=== PATIENT | male | born 1945 | race Caucasian/White ===

== ENCOUNTER 2021-05-09 18:27 | Inpatient (IN) | payer BC, MEDICARE ==
[2021-05-09 19:36] LABS: #Basophils 0.1 10x3/uL (0.0-0.2); #Monocytes 1.1 10x3/uL (0.0-1.1); #Neutrophils 14.3 10x3/uL (1.5-8.4); %Basophils 0.5 % (0.0-2.0); %Eosinophils 0.2 % (0.0-6.0); %Lymphocytes 3.8 % (18.0-47.0); %Monocytes 6.8 % (0.0-10.0); %Neutrophils 88.3 % (40.0-75.0); Hemoglobin 12.9 g/dL (13.5-17.5); Mean Corpuscular HGB CONC 33.4 g/dL (32.0-36.0); Mean Corpuscular Hemoglobin 32.3 pg (27.0-33.0); Mean Corpuscular Volume 96.5 fl (81.2-95.1); Mean Platelet Volume 9.1 fl (7.4-10.4); Platelet Count 230 10x3/uL (150-450); RBC Distribution Width 12.7 % (11.5-14.5); White Blood Cell (WBC) Count 16.2 10x3/uL (3.5-10.5)
[2021-05-09 19:54] LABS: ALT (SGPT) 13 U/L (8-55); AST (SGOT) 20 U/L (5-34); Albumin 3.8 g/dL (3.4-4.8); Alkaline Phosphatase 78 U/L (40-110); Anion Gap 13 mmol/L (10-20); BUN (Urea Nitrogen) 9 mg/dL (8.4-25.7); Bilirubin, Total 0.8 mg/dL (0.2-1.2); Calc. Creatinine Clearance 0 mL/min (70-130); Calcium 9.2 mg/dL (7.8-10.44); Carbon Dioxide 30 mmol/L (23-31); Chloride 87 mmol/L (98-107); Globulin 3.4 g/dL (2.4-3.5); Glucose 130 mg/dL (83-110); Magnesium 1.5 mg/dL (1.6-2.6); Potassium 3.9 mmol/L (3.5-5.1); Protein, Total 7.2 g/dL (5.8-8.1); Sodium 126 mmol/L (136-145)
[2021-05-09 20:07] LABS: Bilirubin 1+ (Negative); Blood, Urine 150 (Negative); Clarity Slightly Cloudy (Clear); Glucose, Urine (Dipstick) Normal (Negative); Ketone, Urine 5 mg/dL (Negative); Leukocyte 500 (Negative); Nitrite Negative (Negative); Protein, Urine (Dipstick) 100 mg/dl (Neg-Trace)
[2021-05-09 20:20] LABS: Bacteria/HPF 3+ HPF (None Seen); Mucous/LPF 2+ LPF (<2+); Renal Epithelial 0-3 HPF (None Seen); Squamous Epithelial 0-3 HPF (0-3); Transitional Epithelial 0-3 HPF (None Seen); WBC/HPF Greater than 50 HPF (0-3)
[2021-05-09 20:21] LABS: White Blood Cell Cast 0-3 LPF (None Seen)
[2021-05-09] MEDS ORDERED: Cefepime 2 GM VIAL ONE (22:08)
[2021-05-09] MEDS ORDERED: Magnesium 2 GM/50 ML BAG (IN WATER) ONE (22:09)
[2021-05-10 00:33] LABS: CKMB 1.8 ng/mL (0-6.6)
[2021-05-10] MEDS ORDERED: Acetaminophen 325 MG TAB PO PRN (05:12)
[2021-05-10] MEDS ORDERED: HYDROcodone/Acetaminophen 5/325 mg Tablet PO PRN (05:12)
[2021-05-10] MEDS ORDERED: Senokot S 8.6-50 MG TAB PO PRN (05:12)
[2021-05-10] MEDS ORDERED: Cefepime 2 GM VIAL ONE (05:41)
[2021-05-10] MEDS ORDERED: NS 0.9% w/ 20 MEQ KCL 1,000 ML ONE (05:45)
[2021-05-10] MEDS ORDERED: Levothyroxine 150 MCG TAB PO SCH (06:00)
[2021-05-10 06:32] LABS: #Basophils 0.1 10x3/uL (0.0-0.2); #Eosinphils 0.1 10x3/uL (0.0-0.5); #Monocytes 1.1 10x3/uL (0.0-1.1); %Basophils 0.4 % (0.0-2.0); %Eosinophils 0.6 % (0.0-6.0); %Lymphocytes 4.7 % (18.0-47.0); %Monocytes 7.1 % (0.0-10.0); %Neutrophils 86.5 % (40.0-75.0); Hemoglobin 12.5 g/dL (13.5-17.5); Mean Corpuscular Hemoglobin 32.5 pg (27.0-33.0); Mean Corpuscular Volume 95.6 fl (81.2-95.1); Mean Platelet Volume 9.2 fl (7.4-10.4); Platelet Count 226 10x3/uL (150-450); RBC Distribution Width 13.1 % (11.5-14.5); Red Blood Cell (RBC) Count 3.85 10x6/uL (4.32-5.72)
[2021-05-10 06:37] LABS: Anion Gap 13 mmol/L (10-20); BUN (Urea Nitrogen) 9 mg/dL (8.4-25.7); Calc. Creatinine Clearance 0 mL/min (70-130); Calcium 8.8 mg/dL (7.8-10.44); Carbon Dioxide 26 mmol/L (23-31); Chloride 90 mmol/L (98-107); Glucose 146 mg/dL (83-110); Magnesium 1.9 mg/dL (1.6-2.6); Potassium 3.8 mmol/L (3.5-5.1); Sodium 125 mmol/L (136-145)
[2021-05-10 06:44] LABS: Troponin I 0.068 ng/mL (< 0.028)
[2021-05-10] MEDS ORDERED: Albuterol Sulfate 2.5 mg/3 ml Neb EZPAP PRN (07:00)
[2021-05-10] MEDS ORDERED: Multivitamin W/ Minerals 1 TAB PO SCH (09:00)
[2021-05-10] MEDS ORDERED: Aspirin 81 mg Enteric Coated Tablet PO SCH (09:00)
[2021-05-10] MEDS: NS 0.9% w/ 20 MEQ KCL 1,000 ML/1,000 ML BAG IV SCH ×3 (09:21→23:44)
[2021-05-10] MEDS: Cefepime 2 GM in Sodium Chloride 0.9% 100 ML IVPB SCH ×2 (09:24→16:59)
[2021-05-10 09:38] LABS: Troponin I 0.064 ng/mL (< 0.028)
[2021-05-10] MEDS: Mometasone 100 MCG/Formoterol 5 MCG 120 PUFF INHALER INH SCH ×2 (09:41→17:17)
[2021-05-10] MEDS: Enoxaparin Sodium 40 MG/0.4 ML SYRINGE SC SCH (09:42)
[2021-05-10 09:59] VITALS: BMI 27.1
[2021-05-10] MEDS ORDERED: FLU VACC QS2021-22(65YR UP)/PF 240 MCG/0.7 ML SYRINGE IM ONE (10:30)
[2021-05-10 12:18] LABS: Sodium 128 mmol/L (136-145)
[2021-05-10] MEDS: Multivitamin W/ Minerals 1 TAB PO SCH (13:23)
[2021-05-10 18:10] LABS: SARS-CoV-2 PCR by NAA Not Detected (NotDetected)
[2021-05-10 18:34] LABS: Sodium 127 mmol/L (136-145)
[2021-05-10 22:39] LABS: Sodium 126 mmol/L (136-145)
[2021-05-11] MEDS ORDERED: Levothyroxine Sodium 100 MCG TAB ONE (05:18)
[2021-05-11 06:03] LABS: Sodium 128 mmol/L (136-145)
[2021-05-11] MEDS: Cefepime 2 GM in Sodium Chloride 0.9% 100 ML IVPB SCH ×2 (06:04→17:39)
[2021-05-11] MEDS: Levothyroxine Sodium 100 MCG TAB PO SCH ×2 (06:04→06:50)
[2021-05-11] MEDS: Aspirin Chewable 81 MG TAB PO SCH (08:16)
[2021-05-11] MEDS: NS 0.9% w/ 20 MEQ KCL 1,000 ML/1,000 ML BAG IV SCH (08:16)
[2021-05-11] MEDS ORDERED: Levothyroxine 150 MCG TAB PO SCH (09:00)
[2021-05-11] MEDS: Enoxaparin Sodium 40 MG/0.4 ML SYRINGE SC SCH (11:05)
[2021-05-11] MEDS: Mometasone 100 MCG/Formoterol 5 MCG 120 PUFF INHALER INH SCH ×2 (11:05→17:39)
[2021-05-11] MEDS: Multivitamin W/ Minerals 1 TAB PO SCH (11:32)
[2021-05-11 11:50] LABS: Sodium 126 mmol/L (136-145)
[2021-05-11 17:29] LABS: Sodium 129 mmol/L (136-145)
[2021-05-12 04:54] LABS: Anion Gap 11 mmol/L (10-20); BUN (Urea Nitrogen) 8 mg/dL (8.4-25.7); Calc. Creatinine Clearance 123 mL/min (70-130); Calcium 8.3 mg/dL (7.8-10.44); Carbon Dioxide 28 mmol/L (23-31); Chloride 95 mmol/L (98-107); Glucose 117 mg/dL (83-110); Potassium 3.7 mmol/L (3.5-5.1); Sodium 130 mmol/L (136-145)
[2021-05-12 05:37] LABS: #Basophils 0.1 10x3/uL (0.0-0.2); #Eosinphils 0.5 10x3/uL (0.0-0.5); #Monocytes 0.8 10x3/uL (0.0-1.1); #Neutrophils 4.2 10x3/uL (1.5-8.4); %Basophils 0.7 % (0.0-2.0); %Eosinophils 6.8 % (0.0-6.0); %Lymphocytes 17.6 % (18.0-47.0); %Monocytes 12.2 % (0.0-10.0); %Neutrophils 62.1 % (40.0-75.0); Hemoglobin 11.1 g/dL (13.5-17.5); Mean Corpuscular HGB CONC 32.5 g/dL (32.0-36.0); Mean Corpuscular Hemoglobin 32.3 pg (27.0-33.0); Mean Corpuscular Volume 99.4 fl (81.2-95.1); Mean Platelet Volume 9.8 fl (7.4-10.4); Platelet Count 231 10x3/uL (150-450); RBC Distribution Width 13.1 % (11.5-14.5); Red Blood Cell (RBC) Count 3.44 10x6/uL (4.32-5.72); White Blood Cell (WBC) Count 6.7 10x3/uL (3.5-10.5)
[2021-05-12] MEDS: Levothyroxine Sodium 100 MCG TAB PO SCH (06:04)
[2021-05-12] MEDS: Cefepime 2 GM in Sodium Chloride 0.9% 100 ML IVPB SCH (06:04)
[2021-05-12] MEDS: Mometasone 100 MCG/Formoterol 5 MCG 120 PUFF INHALER INH SCH (07:20)
[2021-05-12 07:57] VITALS: TEMP 97.1
[2021-05-12] MEDS: Enoxaparin Sodium 40 MG/0.4 ML SYRINGE SC SCH (08:27)
[2021-05-12] MEDS: Aspirin Chewable 81 MG TAB PO SCH (08:28)
[2021-05-12 11:54] VITALS: BP 142/79
[2021-05-12] MEDS: Multivitamin W/ Minerals 1 TAB PO SCH (12:43)
== END 2021-05-12 14:19 | disposition home or self-care (01) | DRG 872 ==
LOC: CSHERS 18:27 → CSHERHOLD 05-10 05:46 → CSHTELE 05-10 08:55
PROVIDERS: ADMIT Family Medicine; ATTEND Family Medicine
DX: A41.9 Sepsis, unspecified organism (principal); E87.1 Hypo-osmolality and hyponatremia; N30.00 Acute cystitis without hematuria; E83.42 Hypomagnesemia; R77.8 Other specified abnormalities of plasma proteins; I48.91 Unspecified atrial fibrillation; E03.9 Hypothyroidism, unspecified; J45.909 Unspecified asthma, uncomplicated; I10 Essential (primary) hypertension; N28.89 Other specified disorders of kidney and ureter; N40.1 Benign prostatic hyperplasia with lower urinary tract symptoms; R33.8 Other retention of urine; Z20.822 Contact with and (suspected) exposure to COVID-19; Z95.0 Presence of cardiac pacemaker; Z79.82 Long term (current) use of aspirin; Z79.899 Other long term (current) drug therapy; Z90.49 Acquired absence of other specified parts of digestive tract
CPT/HCPCS: 36415; 36416; 71045; 74170; 76770; 80048; 80053; 81003; 81015; 82436; 82550; 82553; 83605; 83735; 83935; 84133; 84295; 84300; 84436; 84443; 84484; 84540; 84560; 85025; 87040; 87086; 93005; 94664; J0692; J1650; J3475; J3480; J3490; U0003; U0005

== ENCOUNTER 2022-02-20 09:20 | Emergency (ER) | payer BC ==
[2022-02-20] MEDS ORDERED: Boostrix 0.5 ML (Tdap) VIAL (>/=7 yrs of age) ONE (09:56)
== END 2022-02-20 10:42 | disposition home or self-care (01) ==
LOC: CSHERS 09:20
DX: S00.83XA Contusion of other part of head, initial encounter (principal); I48.91 Unspecified atrial fibrillation; W22.8XXA Striking against or struck by other objects, initial encounter
CPT/HCPCS: 70450; 90471; 90715

== ENCOUNTER 2023-06-24 11:20 | Emergency (ER) | payer BC ==
[2023-06-24 12:55] LABS: #Basophils 0.1 10x3/uL (0.0-0.2); #Eosinphils 0.2 10x3/uL (0.0-0.5); #Neutrophils 8.9 10x3/uL (1.5-8.4); %Basophils 0.8 % (0.0-2.0); %Eosinophils 1.9 % (0.0-6.0); %Monocytes 8.9 % (0.0-10.0); %Neutrophils 77.1 % (40.0-75.0); Hematocrit 41.6 % (38.8-50.0); Mean Corpuscular HGB CONC 33.7 g/dL (32.0-36.0); Mean Corpuscular Hemoglobin 33.5 pg (27.0-33.0); Mean Corpuscular Volume 99.5 fl (81.2-95.1); Mean Platelet Volume 9.8 fl (7.4-10.4); Platelet Count 207 10x3/uL (150-450); Red Blood Cell (RBC) Count 4.18 10x6/uL (4.32-5.72); White Blood Cell (WBC) Count 11.5 10x3/uL (3.5-10.5)
[2023-06-24 13:09] LABS: ALT (SGPT) 15 U/L (8-55); AST (SGOT) 20 U/L (5-34); Albumin 4.1 g/dL (3.4-4.8); Alkaline Phosphatase 67 U/L (40-110); Anion Gap 15 mmol/L (10-20); BUN (Urea Nitrogen) 14 mg/dL (8.4-25.7); Bilirubin, Total 1.2 mg/dL (0.2-1.2); Calc. Creatinine Clearance 0 mL/min (70-130); Calcium 9.3 mg/dL (7.8-10.44); Carbon Dioxide 26 mmol/L (23-31); Chloride 98 mmol/L (98-107); Estimated GFR 75; Globulin 3.4 g/dL (2.4-3.5); Glucose 105 mg/dL (83-110); Lipase 18 U/L (8-78); Potassium 4.4 mmol/L (3.5-5.1); Protein, Total 7.5 g/dL (5.8-8.1); Sodium 135 mmol/L (136-145)
[2023-06-24 13:16] LABS: Bilirubin Neg (Negative); Blood, Urine 250 (Negative); Clarity Clear (Clear); Glucose, Urine (Dipstick) Normal (Negative); Ketone, Urine Negative (Negative); Leukocyte 100 (Negative); Nitrite Negative (Negative); Protein, Urine (Dipstick) 15 mg/dl (Neg-Trace); Urobilinogen Normal mg/dL (Less than 2)
[2023-06-24 14:01] LABS: CAUTI Indications for Culture Pelvic or flank pain; RBC/HPF Greater than 50 HPF (0-3); WBC/HPF Greater than 50 HPF (0-3)
[2023-06-24 14:02] LABS: Bacteria/HPF 1+ HPF (None Seen); Squamous Epithelial None Seen HPF (0-3)
[2023-06-24 14:04] LABS: Urine Culture Reflex Yes Yes
== END 2023-06-24 14:31 | disposition home or self-care (01) ==
LOC: CSHERS 11:20
DX: N39.0 Urinary tract infection, site not specified (principal); Z55.6 Problems related to health literacy; Z90.5 Acquired absence of kidney
CPT/HCPCS: 74176; 80053; 81001; 83690; 85025; 87077; 87086